=== PATIENT | female | born 1935 | race Two or more races ===

== ENCOUNTER 2022-09-05 18:46 | Emergency (ER) | payer OTHER ==
[~2022-09-05] VITALS: Ht 152.4 cm; Wt 72.7 kg
[~2022-09-05 18:46] MED LIST: CEPH-558 PO; METO25 PO
[2022-09-05] MEDS ORDERED: MULT-1366 PO (19:01)
[2022-09-05] MEDS ORDERED: XALA2.5OS OU (19:01)
[2022-09-05] MEDS ORDERED: LISI-658 PO (19:01)
[2022-09-05] MEDS ORDERED: METO25TA3 PO (19:01)
[2022-09-05] MEDS ORDERED: LEVO50 PO (19:01)
[2022-09-05] MEDS ORDERED: ATOR10TA69 PO (19:01)
[2022-09-05] MEDS ORDERED: ALEN70TA65 PO (19:01)
[2022-09-05] MEDS ORDERED: POLY15DR29 OU (19:01)
[2022-09-05] MEDS ORDERED: ASPI81TA87 PO (19:01)
[2022-09-05 19:15] LABS: COVID AG,FIA SOURCE NASAL SWAB
[2022-09-05 19:35] LABS: INFLUENZA TYPE A NEGATIVE FOR TYPE A (NEGATIVE); INFLUENZA TYPE B NEGATIVE FOR TYPE B (NEGATIVE)
[2022-09-05 20:55] LABS: BASOPHILS % (AUTO) 0.6 % (0.0-2.0); EOSINOPHILS % (AUTO) 0.1 % (1.0-6.0); HEMATOCRIT 35.3 % (36-46); HEMOGLOBIN 11.6 g/dL (12.0-16.0); LYMPHOCYTES # (AUTO) 2.1 K/uL (1.0-4.8); LYMPHOCYTES % (AUTO) 12.2 % (22.0-44.0); MEAN CORPUSCULAR HEMOGLOBIN 28.6 pg (26.0-34.0); MEAN CORPUSCULAR VOLUME 87 fL (80-100); MONOCYTES # (AUTO) 1.8 K/uL (0.1-1.0); MONOCYTES % (AUTO) 10.2 % (2.0-9.0); NEUTROPHILS # (AUTO) 13.5 K/uL (1.8-7.7); NEUTROPHILS % (AUTO) 76.9 % (40.0-70.0); PLATELET COUNT (AUTO) 297 K/uL (150-450); RED BLOOD CELL COUNT(AUTO) 4.06 MIL/uL (4.00-5.20)
[2022-09-05 21:04] LABS: CALCIUM, TOTAL 9.2 mg/dL (8.8-10.5); CREATININE 1.17 mg/dL (0.60-1.30); POTASSIUM 3.8 mmol/L (3.5-5.1)
[2022-09-05 21:09] LABS: ALBUMIN 2.9 g/dL (3.4-5.0); BILIRUBIN,TOTAL 0.7 mg/dL (0.1-1.0); TOTAL PROTEIN, SERUM 7.3 g/dL (6.4-8.2)
[2022-09-05 22:17] LABS: APPEARANCE,URINE CLEAR (CLEAR); BILIRUBIN,URINE NEGATIVE (NEGATIVE); GLUCOSE, URINE (UA) NEGATIVE (NEGATIVE); KETONES,URINE NEGATIVE (NEGATIVE); LEUKOCYTE ESTERASE ,URINE LARGE (NEGATIVE); NITRATE,URINE NEGATIVE (NEGATIVE); OCCULT BLOOD,URINE NEGATIVE (NEGATIVE); PH,URINE 6.5 (5.0-8.0); PROTEIN,URINE NEGATIVE (NEGATIVE); SPECIFIC GRAVITIY, URINE 1.005 (1.003-1.030); UROBILINOGEN,URINE <=1.0 mg/dL (<=1.0)
[2022-09-05 22:26] LABS: BACTERIA,URINE Moderate /HPF (None Seen); RBC,URINE None Seen /HPF (0-2); SQUAMOUS EPITHELIAL CELL,UR None Seen /LPF (None Seen)
[2022-09-05] MEDS ORDERED: SODIUM CHLORIDE 0.9% 1,000 ML IV ONE (23:30)
[2022-09-05] MEDS ORDERED: PIPERACILLIN/TAZO 3.375 GM/D5W 50 ML IV ONE (23:30)
[2022-09-06 03:39] VITALS: BP 126/66
== END 2022-09-06 05:10 | disposition short-term general hospital (02) ==
LOC: EMS 18:49
DX: N12 Tubulo-interstitial nephritis, not specified as acute or chronic (principal); E78.00 Pure hypercholesterolemia, unspecified; I10 Essential (primary) hypertension; E03.9 Hypothyroidism, unspecified; Z98.890 Other specified postprocedural states; Z20.822 Contact with and (suspected) exposure to COVID-19
CPT/HCPCS: 99285; 71045; 87426; 80053; 81001; 83690; 85025; 87040; 87804; 36415; 87086; 87186; 74176; 96365; J2543; J7030